=== PATIENT | male | born 2000 | race Caucasian/White ===

== ENCOUNTER 2024-11-30 19:02 | Emergency (ER) | payer SELFPAY ==
[2024-12-01] MEDS ORDERED: ONDA4TAB11 PO (14:27)
[2024-12-01] MEDS ORDERED: NALO4SPR BNOSTRILS (14:27)
== END 2024-11-30 21:11 | disposition left against medical advice (07) ==
LOC: ER 19:09
DX: F19.139 Other psychoactive substance abuse with withdrawal, unspecified (principal); Z53.21 Procedure and treatment not carried out due to patient leaving prior to being seen by health care provider

== ENCOUNTER 2024-12-01 12:58 | Emergency (ER) | payer OTHER ==
[~2024-12-01] VITALS: Ht 182.9 cm; Wt 88.5 kg
[2024-12-01] MEDS: IV NS 0.9% 1,000 ML BAG IV ONE (13:57)
[2024-12-01] MEDS ORDERED: ONDANSETRON HCL/PF 4 MG/2 ML VIAL ONE (13:58)
[2024-12-01] MEDS ORDERED: FAMOTIDINE/PF INJ 20 MG/2 ML VIAL IV ONE (13:58)
[2024-12-01] MEDS: ONDANSETRON HCL/PF 4 MG/2 ML VIAL IVP ONE (14:01)
[2024-12-01] MEDS: FAMOTIDINE/PF INJ 20 MG/2 ML VIAL IV ONE (14:02)
[2024-12-01] MEDS ORDERED: NALO4SPR BNOSTRILS (14:27)
[2024-12-01] MEDS ORDERED: ONDA4TAB11 PO (14:27)
[2024-12-01 14:56] LABS: ALBUMIN 4.7 g/dL (3.4-5.0); BASOPHILS # (AUTO) 0.1 K/uL (0.0-0.2); BASOPHILS % (AUTO) 0.4 % (0.0-2.0); BILIRUBIN,DIRECT 0.4 mg/dL (0.0-0.2); BILIRUBIN,TOTAL 1.7 mg/dL (0.2-1.0); CALCIUM, SERUM 9.9 mg/dL (8.5-10.1); CREATININE 1.2 mg/dL (0.6-1.3); EOSINOPHILS % (AUTO) 0.1 % (0.0-6.0); HEMATOCRIT 50 % (39-51); HEMOGLOBIN 17.9 g/dL (13.5-17.5); LYMPHOCYTES # (AUTO) 1.9 K/uL (0.8-4.8); LYMPHOCYTES % (AUTO) 12.9 % (20.0-44.0); MEAN CORPUSCULAR HEMOGLOBIN 31 PG (26.0-33.0); MEAN CORPUSCULAR HGB CONC 36 g/dl (31.0-36.0); MEAN CORPUSCULAR VOLUME 88 fL (80-96); MONOCYTES # (AUTO) 1.3 K/uL (0.1-1.30); MONOCYTES % (AUTO) 8.8 % (2.0-12.0); NEUTROPHILS # (AUTO) 11.5 K/uL (1.8-8.9); NEUTROPHILS % (AUTO) 77.8 % (43.0-81.0); PLATELET COUNT (AUTO) 427 K/uL (150-450); RED CELL DISTRIBUTION WIDTH 12.2 % (11.5-15.0); TOTAL PROTEIN, SERUM 8.7 g/dL (6.4-8.2); WHITE BLOOD COUNT (AUTO) 14.8 K/uL (4.3-11.0)
[2024-12-01 15:11] LABS: POTASSIUM 2.7 mmol/L (3.5-5.1)
[2024-12-01] MEDS ORDERED: POTASSIUM CHLORIDE 20 MEQ TAB.PRT.SR PO ONE (15:28)
[2024-12-01] MEDS ORDERED: Magnesium 1GM/D5W 100ML PREMIX 100 ML IV ONE (15:28)
[2024-12-01] MEDS: POTASSIUM CHLORIDE 20 MEQ TAB.PRT.SR PO ONE (15:46)
[2024-12-01] MEDS: Magnesium 1GM/D5W 100ML PREMIX 100 ML IV SCH (15:46)
[2024-12-01 15:48] LABS: PLATELET ESTIMATE ADEQUATE
[2024-12-01 16:36] VITALS: BP 122/99; TEMP 98; O2SAT 100
== END 2024-12-01 16:36 | disposition home or self-care (01) ==
LOC: ER 13:10
DX: E87.6 Hypokalemia (principal); E86.0 Dehydration; F11.10 Opioid abuse, uncomplicated; R11.2 Nausea with vomiting, unspecified
CPT/HCPCS: 99285; 96365; 96375; 96361; 85025; 80048; 83690; 80076; 36415; J3490; J2405; J7030; A4649; J3475